=== PATIENT | male | born 1985 | race Caucasian/White ===

== ENCOUNTER 2016-06-17 03:00 | Emergency (ER) | payer OTHER ==
[2016-06-17 03:17] VITALS: BP 120/88; PULSE 102; TEMP 98.3; BMI 40.8
--- NOTE | 2016-06-17 03:41 | PDOC ---
History of Present Illness - General Chief Complaint: Sore Throat Stated Complaint: BODY ACHE,SORE THROAT Time Seen by Provider: 06/17/16 03:17 History Source: Patient Exam Limitations: No Limitations - History of Present Illness Initial Comments: 06/17/16 03:36 30 yo Male patient presents to ED c/o headache, bodyache, cough, and sore throat x 3 days. Patient state he usually gets strep throat but this is the worse he has had pain. Advil 800mg last dose 12 noon. Denies any past medical history or any other complaints at this time. Timing/Duration: other (3 days) Severity: severe Associated Symptoms: denies: denies symptoms, chest pain, cough, diaphoresis, fever/chills, headaches, loss of appetite, malaise, nausea/vomiting, rash, seizure, shortness of breath, syncope, weakness, other Aspirin Received prior to arrival: No: no aspirin today, unknown, 81 mg x 1, 81 mg x 2, 81 mg x 3, 81 mg x 4, 325 mg x 1, provided at home, provided by EMS, provided by ED [facility] Contraindications(Core Measure): No: Allergy, Other, Active Blding w/i 24 hrs., Plavix, Receiving Warfarin Beta Mirian Contraindications(Core Measure): No: Not Prescribed, Allergy, Bradycardia (HR <60bpm), Advanced Heart Block, Pacemaker, Other Past History - Travel Traveled outside of the country in the last 30 days: No Close contact w/someone who was outside of country & ill: No - Past Medical History Allergies/Adverse Reactions: Allergies Allergy/AdvReac Type Severity Reaction Status Date / Time amoxicillin [Amoxicillin] Allergy Severe anaphylactic Verified 06/17/16 03:16 reaction Penicillins Allergy Severe anaphylactic Verified 06/17/16 03:16 reaction Home Medications: Ambulatory Orders No Home Medications 0 dose .ROUTE UTDICT 10/20/13 Acetaminophen with Codeine [Acetaminophen-Codeine Solution] 5 ml PO Q8H PRN #50 ml MDD 15 ml 06/17/16 Clarithromycin [Biaxin -] 250 mg PO BID #20 tablet 06/17/16 Asthma: Yes Suicide Attempt (Hx): No - Immunization History Immunization Up to Date: No - Psycho/Social/Smoking Cessation Hx Anxiety: No Suicidal Ideation: No Smoking Status: Yes Smoking History: Never smoked Have you smoked in the past 12 months: No Number of Cigarettes Smoked Daily: 20 Information on smoking cessation initiated: No 'Breaking Loose' booklet given: 10/20/13 Hx Alcohol Use: No Drug/Substance Use Hx: No Review of Systems - Review of Systems Able to Perform ROS?: Yes Is the patient limited Latvian proficient: No Constitutional: Yes: Fever. No: Chills HEENTM: Yes: Throat Pain, Difficulty Swallowing. No: Ear Pain, Ear Discharge, Nose Congestion, Mouth Swelling Respiratory: Yes: Cough. No: Shortness of Breath, Stridor, Wheezing Cardiac (ROS): No: Chest Pain, Palpitations, Syncope, Chest Tightness ABD/GI: No: Constipated, Diarrhea, Nausea, Poor Appetite, Poor Fluid Intake, Vomiting Musculoskeletal: No: Back Pain Neurological: Yes: Headache. No: Numbness, Paresthesia, Seizure, Tremors, Weakness All Other Systems: Reviewed and Negative *Physical Exam - Vital Signs Last Vital Signs Temp Pulse Resp BP Pulse Ox 98.3 F 102 H 20 120/88 97 06/17/16 03:16 06/17/16 03:16 06/17/16 03:16 06/17/16 03:16 06/17/16 03:16 - Physical Exam General Appearance: Yes: Nourished, Appropriately Dressed. No: Apparent Distress, Mild Distress, Moderate Distress, Severe Distress HEENT: positive: EOMI, BERT, Normal ENT Inspection, Normal Voice, Symmetrical, TMs Normal, Pharyngeal Erythema (Severe), Tonsillar Exudate (Moderate amount extending to Uvula), Tonsillar Erythema (Severe). negative: Nasal Congestion, Rhinorrhea, TM Bulging, TM Dull, TM Erythema Neck: positive: Trachea midline, Supple, Lymphadenopathy (R). negative: Lymphadenopathy (L) Respiratory/Chest: positive: Lungs Clear, Normal Breath Sounds. negative: Respiratory Distress, Accessory Muscle Use, Labored Respiration, Rapid RR Cardiovascular: positive: Regular Rhythm. negative: Edema, JVD, Murmur Gastrointestinal/Abdominal: positive: Normal Bowel Sounds, Soft. negative: Distended, Guarding, Rebound, Tenderness Musculoskeletal: positive: Normal Inspection, CVA Tenderness. negative: CVA Tenderness (R) Extremity: positive: Normal Capillary Refill, Normal Inspection, Normal Range of Motion. negative: Pedal Edema, Swelling Integumentary: positive: Normal Color, Dry, Warm. negative: Rash, Swelling Neurologic: positive: wind turbine mechanic II-XII NML intact, Fully Oriented, Alert, Normal Mood/ Affect, Normal Response, Motor Strength 5/5 *DC/Admit/Observation/Transfer Diagnosis at time of Disposition: Strep pharyngitis - Discharge Dispostion Disposition: HOME Condition at time of disposition: Stable Admit: No - Prescriptions Prescriptions: Acetaminophen with Codeine [Acetaminophen-Codeine Solution] 5 ml PO Q8H PRN #50 ml MDD 15 ml PRN Reason: throat pain/ cough Clarithromycin [Biaxin -] 250 mg PO BID #20 tablet - Patient Instructions Printed Discharge Instructions: DI for Strep Throat Additional Instructions: FOLLOW UP WITH YOUR DOCTOR. CALL TO SCHEDULE APPOINTMENT. TAKE MEDICATIONS PRESCRIBED. DO NOT DRIVE, DRINK ALCOHOL, OR OPERATE HEAVY MACHINERY WHILE TAKING TYLENOL W/ CODEINE. DRINK LOTS OF FLUIDS. GARGLE TWICE A DAY WITH WARM SALT WATER ( 1 TEA SPOON). Print Language: DUTCH
[2016-06-17] MEDS ORDERED: CLARITHROMYCIN 250 MG TABLET PO ONE (03:47)
== END 2016-06-17 04:11 | disposition home or self-care (01) ==
LOC: JER 03:00
DX: J02.0 Streptococcal pharyngitis (principal); J45.909 Unspecified asthma, uncomplicated; F17.210 Nicotine dependence, cigarettes, uncomplicated
CPT/HCPCS: 99281-25